=== PATIENT | male | born 1960 | race Caucasian/White ===

== ENCOUNTER 2017-09-18 09:19 | Outpatient (CLI) | payer OTHER ==
[2017-09-18 09:54] LABS: BASOPHILS % (AUTO) 0.8 %; EOSINOPHILS # (AUTO) 0.2 10^3/uL (0.0-0.7); EOSINOPHILS % (AUTO) 3.7 %; HGB - HEMOGLOBIN 14.5 g/dL (14.0-18.0); LYMPHOCYTES # (AUTO) 1.5 10^3/uL (1.5-3.5); LYMPHOCYTES % (AUTO) 24.9 %; MEAN CORPUSCULAR HEMOGLOBIN 29.1 pg (27.0-31.0); MEAN CORPUSCULAR HGB CONC 34.1 g/dL (32.0-36.0); MEAN CORPUSCULAR VOLUME 85.4 fL (80.0-94.0); MEAN PLATELET VOLUME 8.1 fL (7.4-11.4); MONOCYTES # (AUTO) 0.3 10^3/uL (0.0-1.0); MONOCYTES % (AUTO) 5.7 %; NEUTROPHILS # (AUTO) 3.9 10^3/uL (1.5-6.6); NEUTROPHILS % (AUTO) 64.9 %; PLT - PLATELET COUNT 203 10^3/uL (130-450); RED BLOOD COUNT 4.99 10^6/uL (4.70-6.10); RED CELL DISTRIBUTION WIDTH 13.4 % (12.0-15.0)
[2017-09-18 10:10] LABS: ALBUMIN 4.3 g/dL (3.2-5.5); ALBUMIN/GLOBULIN RATIO 1.3 (1.0-2.2); ALKALINE PHOSPHATASE 54 IU/L (42-121); ALT ALANINE AMINOTRANSFERASE 28 IU/L (10-60); AST ASPARTATE AMINOTRANSFERASE 28 IU/L (10-42); BILIRUBIN,TOTAL 0.8 mg/dL (0.2-1.0); BUN - BLOOD UREA NITROGEN 16 mg/dL (6-20); CALCIUM 9.4 mg/dL (8.5-10.3); CARBON DIOXIDE - CO2 25 mmol/L (21-32); CHLORIDE 106 mmol/L (101-111); CHOL/HDL RATIO 4.7 (<5.0); CHOLESTEROL 255 mg/dL; GFR - MDRD 78 (>89); GLUCOSE 99 mg/dL (70-100); HDL CHOLESTEROL 54 mg/dL; LDL CHOLESTEROL,CALCULATED 179 mg/dL; LDL/HDL RATIO 3.3 (<3.6); SODIUM 139 mmol/L (135-145); TOTAL PROTEIN 7.5 g/dL (6.7-8.2); VLDL CHOLESTEROL 22 mg/dL
[2017-09-18 10:25] LABS: HB2 TOTAL 16.1 g/dL; HEMOGLOBIN A1C 0.6 g/dL; HEMOGLOBIN A1C % 5.6 % (4.6-6.2)
[2017-09-18 10:43] LABS: THYROID STIMULATING HORMONE 2.17 uIU/mL (0.34-5.60)
[2017-09-21 11:58] LABS: HEPATITIS C ANTIBODY NON-REACTIVE (NON-REACTIVE)
== END 2017-09-18 09:20 | disposition home or self-care (01) ==
LOC: LAB 09:19
PROVIDERS: ATTEND Internal Medicine
DX: R42 Dizziness and giddiness (principal); Z13.6 Encounter for screening for cardiovascular disorders; Z12.5 Encounter for screening for malignant neoplasm of prostate; R20.0 Anesthesia of skin; Z11.59 Encounter for screening for other viral diseases; H93.19 Tinnitus, unspecified ear; R13.10 Dysphagia, unspecified
CPT/HCPCS: 36415; 80053; 80061; 82607; 83036; 83721; 84153; 84443; 85025; 86803

== ENCOUNTER 2018-06-22 10:10 | Outpatient (CLI) | payer BC ==
--- NOTE | 2018-06-22 14:47 | Nuclear Medicine Report ---
REVISED: THIS REPORT WAS ORIGINALLY SIGNED ON 06/22/2018 @ 1448. THE EXAM CODE REVISED ON 07/12/2018. Reason: 185 LB - LETICIA - CHEST PAIN Procedure Date: 06/22/2018 Accession Number: [id number] / [id number] Procedure: NM - Myocardial Perfusion Single CPT Code: FULL RESULT: EXAM: SINGLE-ISOTOPE EXERCISE STRESS TEST. SINGLE-ISOTOPE AND ONE-DAY REST/STRESS MYOCARDIAL PERFUSION SCANS WITH TOMOGRAPHIC IMAGING, QUANTITATIVE ANALYSIS, WALL MOTION ANALYSIS AND CALCULATION OF EJECTION FRACTION. EXAM DATE: 06/22/2018 02:09 PM. CLINICAL HISTORY: 185 LB - LETICIA - CHEST PAIN. COMPARISON: None. TECHNIQUE: A rest myocardial perfusion scan was done with tomography after the intravenous administration of 10.1 mCi Tc-99m sestamibi. After an appropriate delay, a treadmill exercise stress was performed according to department protocol. The patient exercised for 10 minutes and 0 seconds. The maximum heart rate was 167 bpm, which was more than 85% of the maximum predicted heart rate of 164 bpm. At approximately peak heart rate, 43.1 mCi of Tc-99m sestamibi was injected for stress myocardial perfusion scan. Motion correction was applied when appropriate. Gated tomographic images were obtained for wall motion analysis and computation of left ventricular ejection fraction. FINDINGS: Perfusion images: Left ventricular chamber size appears normal at rest and unchanged at stress. No convincing fixed perfusion deficits. No convincing reversible perfusion deficits. SSS 1, SRS 0, SDS 1. Gated images: No convincing focal wall motion abnormality. Calculated left ventricular EDV 72 mL, ESV 24 mL. The left ventricular ejection fraction is estimated at 66% (normal > 50%). IMPRESSION: 1. No convincing reversible perfusion deficits to indicate stress-induced ischemia. 2. No convincing fixed perfusion deficits. 3. Left ventricular ejection fraction of 66% (normal > 50%). RADIA MTDD
--- NOTE | 2018-06-22 16:30 | CARDIAC PROCEDURE NOTE ---
DATE OF SERVICE: 06/22/2018 Physician: Maggie Carlisle MD PROCEDURE: Exercise Cardiolite. PROTOCOL: Tahir. EXERCISE TIME: 10 minutes. METS: 11.81 HEART RATE RESPONSE: Baseline 54, to maximum 167, which was 101% of the maximum predicted heart rate . BLOOD PRESSURE RESPONSE: Baseline 122/86 to maximum 150/90. REASON FOR STOPPING TEST: The patient had exceeded his target heart rate. He says he could have kep t going on the test. SYMPTOMS: None, except a mild dizziness or lightheadedness. No vertigo. No chest pain. No dyspnea . ST SEGMENT RESPONSE: No significant ST elevations or depressions. ARRHYTHMIAS: Occasional PVCs occurred, and rarer PACs. IMPRESSION: No symptoms. No significant EKG changes. CONCLUSIONS: Await Cardiolite portion of test. TD: 06/22/2018 13:01
== END 2018-06-22 10:11 | disposition home or self-care (01) ==
LOC: DI 10:10
PROVIDERS: ATTEND Internal Medicine
DX: R07.9 Chest pain, unspecified (principal)
CPT/HCPCS: 78452; 93017; A9500; 78453

== ENCOUNTER 2018-09-23 09:18 | Day surgery (SDC) | payer BC ==
[2018-09-23] MEDS ORDERED: LACTATED RINGERS 1,000 ML IV ONE (09:31)
[2018-09-23] MEDS ORDERED: fentaNYL 100 MCG/2 ML VIAL IVP ONE (10:34)
[2018-09-23] MEDS ORDERED: fentaNYL 250 MCG/5 ML VIAL IVP ONE (10:34)
[2018-09-23] MEDS ORDERED: MIDAZOLAM 2 MG/2 ML VIAL IVP ONE (10:34)
[2018-09-23] MEDS ORDERED: LIDO GARGLE 30 ML BOTTLE PO ONE (10:46)
[2018-09-23 12:29] VITALS: BP 102/65
== END 2018-09-23 09:19 | disposition home or self-care (01) ==
LOC: SDS 09:18
PROVIDERS: ATTEND Internal Medicine Gastroenterology
PROC: 0DBP8ZZ Excision of Rectum, Via Natural or Artificial Opening Endoscopic (ICD-10-PCS; 2018-09-23)
PROC: 0DB28ZX Excision of Middle Esophagus, Via Natural or Artificial Opening Endoscopic, Diagnostic (ICD-10-PCS; 2018-09-23)
PROC: 0DB18ZX Excision of Upper Esophagus, Via Natural or Artificial Opening Endoscopic, Diagnostic (ICD-10-PCS; 2018-09-23)
PROC: 0DBM8ZZ Excision of Descending Colon, Via Natural or Artificial Opening Endoscopic (ICD-10-PCS; principal; 2018-09-23 10:45)
PROC: 0DBN8ZZ Excision of Sigmoid Colon, Via Natural or Artificial Opening Endoscopic (ICD-10-PCS; 2018-09-23 10:45)
DX: Z12.11 Encounter for screening for malignant neoplasm of colon (principal); D12.4 Benign neoplasm of descending colon; D12.5 Benign neoplasm of sigmoid colon; K62.1 Rectal polyp; K57.30 Diverticulosis of large intestine without perforation or abscess without bleeding; K22.2 Esophageal obstruction; K21.9 Gastro-esophageal reflux disease without esophagitis; R13.10 Dysphagia, unspecified; K44.9 Diaphragmatic hernia without obstruction or gangrene; K22.9 Disease of esophagus, unspecified
CPT/HCPCS: 43239; 45380; 45385; A9270; J3010; J7120

== ENCOUNTER 2019-10-20 13:41 | Outpatient (CLI) | payer OTHER ==
--- NOTE | 2019-10-20 14:35 | XRAY Report ---
Reason: RT KNEE PAIN Procedure Date: 10/20/2019 Accession Number: [id number] / [id number] Procedure: XR - Knee 4 View RT CPT Code: Final Report FULL RESULT: PROCEDURE: Knee 4 View RT INDICATIONS: RT KNEE PAIN TECHNIQUE: 4 views of the right knee(s) were acquired. COMPARISON: None. FINDINGS: Bones: No fractures or dislocations. Very mild medial femoral tibial compartment joint space narrowing and subchondral sclerosis is seen. No suspicious bony lesions. Soft tissues: No joint effusion. No suspicious soft tissue calcifications. IMPRESSION: . Mild medial femoral tibial compartment osteoarthritis. Reviewed by: Frank Galindo MD on 10/20/2019 2:34 PM PDT Approved by: Frank Galindo MD on 10/20/2019 2:34 PM PDT Station ID: [id number]
== END 2019-10-20 13:42 | disposition home or self-care (01) ==
LOC: DI 13:41
PROVIDERS: ATTEND Orthopaedic Surgery
DX: M17.11 Unilateral primary osteoarthritis, right knee (principal)

== ENCOUNTER 2020-06-05 10:22 | Outpatient (CLI) | payer BC ==
--- NOTE | 2020-06-05 11:33 | MRI Report ---
PROCEDURE: Lumbar Spine W/O INDICATIONS: LOW BACK PAIN, NUMBNESS LEG/FEET TECHNIQUE: Noncontrast sagittal T1 spin echo and T2 fast echo, sagittal STIR, axial T1 and T2 fast spin echo thr ough the lumbar spine. In cases with scoliosis, additional coronal T2 fast spin echo may be performe d. COMPARISON: Lumbar spine MRI dated 04/05/2014 FINDINGS: Image quality: Excellent. Alignment and Curvature: No plain films are available for comparison. Thus, for numbering purposes, 5 lumbar type vertebral bodies will be presumed for the current report. This should be confirmed with plain film correlation prior to any lumbar spinal intervention. There is loss of normal lumbar lordo sis. Bone Marrow: Marrow is of normal overall signal. No acute vertebral body compression fractures. Mi nimal reactive signal within the end plate adjacent to the L5-S1 and L3-L4 intervertebral discs. Spinal Cord: Conus medullaris terminates at the lower L1 level. Visualized cord demonstrates normal signal and size. Paraspinous Soft Tissues: No paravertebral masses. T12-L1: Mild disc desiccation. No significant canal, nor foraminal stenosis. No change. L1-L2: Mild disc desiccation. Mild facet and ligament flavum hypertrophy. No significant canal, no r foraminal stenosis. No change. L2-L3: Mild disc desiccation and diffuse disc bulge. Mild facet and ligament flavum hypertrophy. M ild epidural lipomatosis. Mild canal stenosis. Mild bilateral foraminal stenosis. No change. L3-L4: Mild disc desiccation and diffuse disc bulge. Mild facet and ligament flavum hypertrophy. Mi ld epidural lipomatosis. Mild canal stenosis. Mild bilateral foraminal stenosis. No change. L4-L5: Mild disc desiccation and diffuse disc bulge. Mild facet and ligamentum flavum hypertrophy. Mild canal stenosis. Mild bilateral foraminal stenosis. No change. L5-S1: Mild disc height loss and desiccation. Mild diffuse disc bulge with small superimposed right paracentral protrusion. Mild bilateral facet hypertrophy. Mild canal stenosis. Mild bilateral forami nal stenosis. No change. IMPRESSION: 1. Multilevel degenerative disc and facet disease, in addition to epidural lipomatosis and ligamentum flavum hypertrophy. 2. Mild multilevel canal and foraminal stenoses. No neural impingement. Reviewed by: Nancy Sawyer MD on 06/05/2020 11:32 AM PST Approved by: Nancy Sawyer MD on 06/05/2020 11:32 AM [facility] Station ID: [id number]
== END 2020-06-05 10:23 | disposition home or self-care (01) ==
LOC: DI 10:22
PROVIDERS: ATTEND Internal Medicine
DX: E88.2 Lipomatosis, not elsewhere classified (principal); M47.816 Spondylosis without myelopathy or radiculopathy, lumbar region; M51.36 Other intervertebral disc degeneration, lumbar region; M48.061 Spinal stenosis, lumbar region without neurogenic claudication; M51.27 Other intervertebral disc displacement, lumbosacral region

== ENCOUNTER 2020-08-27 12:27 | Emergency (ER) | payer OTHER ==
[2020-08-27 12:50] VITALS: BP 135/83
--- NOTE | 2020-08-27 12:58 | ED Physician Documentation ---
History of Present Illness - Stated complaint Stated Complaint: HEADACHE/NECK PX - Chief complaint Chief Complaint: General - History obtained from History obtained from: Patient - Additonal information Additional information: Had first Pfizer Covid shot about 2-1/2 weeks ago. About 3 days later developed headache and neck pain. The symptoms are persistent. The pain is much worse with rotation than it is flexion or extension. The headache is persistent but improved with Tylenol, aspirin, or Aleve. He denies any fevers. Review of Systems Constitutional: reports: Myalgias. denies: Fever, Chills Musculoskeletal: reports: Neck pain. denies: Back pain Neurologic: reports: Numbness (He has chronic numbness of his feet and is seeing a neurologist soon for this for EMG.) PD PAST MEDICAL HISTORY - Past Medical History Past Medical History: No Cardiovascular: None Respiratory: None Endocrine/Autoimmune: None GI: None : None HEENT: None Psych: None Musculoskeletal: Other Derm: None - Past Surgical History Past Surgical History: Yes General: Colonoscopy - Present Medications Home Medications: Ambulatory Orders Medication Instructions Recorded Confirmed No Known Home Medications 09/23/18 09/23/18 - Allergies Allergies/Adverse Reactions: Allergies Allergy/AdvReac Type Severity Reaction Status Date / Time Penicillins Allergy Hives Verified 08/27/20 12:36 prochlorperazine Allergy Unknown Verified 08/27/20 12:36 [From Compazine] - Social History Does the pt smoke?: No Smoking Status: Never smoker Does the pt drink ETOH?: Yes Does the pt have substance abuse?: Yes Substance Use and Type: CBD oil / Products - Immunizations Immunizations are current?: Yes - POLST Patient has POLST: No PD ED PE NORMAL - Vitals Vital signs reviewed: Yes - General General: Alert and oriented X 3, No acute distress - HEENT HEENT: PERRL, EOMI - Neck Neck: Supple, no meningeal sign, No bony TTP - Neuro Neuro: Alert and oriented X 3, No motor deficit, No sensory deficit, Normal speech - Psych Psych: Normal mood, Normal affect Results - Vitals Vitals: Vital Signs - 24 hr 08/27/20 08/27/20 12:36 12:49 Temperature 36.5 C Heart Rate 60 85 Respiratory 16 16 Rate Blood Pressure 129/82 H 135/83 H O2 Saturation 99 99 Oxygen O2 Source Room air PD MEDICAL DECISION MAKING - ED course ED course: Given the time course, and specific clinical circumstances especially the fact that his pain is worse with rotation and going side to side rather than flexion and the lack of Kernig's or Brudzinski sign and lack of fever I told him that meningitis was exceedingly unlikely. That said I offered lumbar puncture which she declined. Departure - Departure Disposition: Home, Self Care Clinical Impression: Neck pain Condition: Good Record reviewed to determine appropriate education?: Yes Instructions: ED Neck Pain No Trauma Comments: As discussed, given the time course, increased pain with rotation rather than flexion extension, and lack of fevers I think meningitis is exceedingly unlikely. Return if you worsen or develop any of these above symptoms, especially fever, or more pain with going forward with your neck then rotating the neck.
== END 2020-08-27 13:04 | disposition home or self-care (01) ==
LOC: ED 12:27
DX: M54.2 Cervicalgia (principal)
CPT/HCPCS: 99281; 99282

== ENCOUNTER 2020-08-29 15:43 | Outpatient (CLI) | payer OTHER ==
--- NOTE | 2020-08-29 16:03 | CT Report ---
PROCEDURE: HEAD WO INDICATIONS: HEADACHE TECHNIQUE: Noncontrast 4.5 mm thick angled axial sections acquired from the foramen magnum to the vertex. For r adiation dose reduction, the following was used: automated exposure control, adjustment of mA and/or kV according to patient size. COMPARISON: None. FINDINGS: Image quality: Excellent. CSF spaces: Basal cisterns are patent. No extra-axial fluid collections. Ventricles are normal in size and shape. Brain: No midline shift. No intracranial masses or hemorrhage. Garcia-white matter interface is norm al. Skull and face: Calvarium and visualized facial bones are intact, without suspicious lesions. Sinuses: Visualized sinuses and mastoids are clear. IMPRESSION: No acute intracranial process. Reviewed by: Gibran Harris MD on 08/29/2020 4:02 PM PDT Approved by: Gibran Harris MD on 08/29/2020 4:02 PM PDT Station ID: [id number]
== END 2020-08-29 15:44 | disposition home or self-care (01) ==
LOC: DI 15:43
PROVIDERS: ATTEND Physician Assistant
DX: R51.9 Headache, unspecified (principal)

== ENCOUNTER 2021-07-09 16:28 | Outpatient (CLI) | payer OTHER ==
--- NOTE | 2021-07-09 20:10 | XRAY Report ---
PROCEDURE: Hip w/Pelvis 1V RT INDICATIONS: PAIN IN RIGHT HIP JOINT TECHNIQUE: AP pelvis with lateral view(s) of the right hip(s). COMPARISON: None. FINDINGS: Bones: No fractures or dislocations. Pelvic ring appears intact. No suspicious bony lesions. Mild bilateral hip degenerative change. Soft tissues: The visualized bowel gas pattern is normal. No suspicious soft tissue calcifications. IMPRESSION: Mild bilateral hip degenerative change. No evidence acute bony abnormality of the pelvis and right hip. If clinical suspicion and/or symptoms persist, further assessment with repeat plain films or advanced imaging (e.g., CT, MRI, or bone scan) may be helpful for further assessment. Reviewed by: Freddy Alcantara MD on 07/09/2021 8:09 PM PST Approved by: Freddy Alcantara MD on 07/09/2021 8:09 PM PST Station ID: [id number]
== END 2021-07-09 16:29 | disposition home or self-care (01) ==
LOC: DI 16:28
PROVIDERS: ATTEND Internal Medicine
DX: M16.0 Bilateral primary osteoarthritis of hip (principal)

== ENCOUNTER 2022-07-22 10:37 | Outpatient (CLI) | payer OTHER ==
--- NOTE | 2022-07-22 16:53 | XRAY Report ---
PROCEDURE: Wrist 3 View RT INDICATIONS: WRIST PAIN TECHNIQUE: 3 views of the wrist were acquired. COMPARISON: None FINDINGS: Bones: No fractures or dislocations. No suspicious bony lesions. Scaphoid view: Not requested Soft tissues: No suspicious soft tissue calcifications. IMPRESSION: No acute fracture. No osseous lesion. If symptoms and/or clinical suspicion for pathology continue, f urther assessment with repeat plain films, or advanced imaging (e.g., CT, MRI, or bone scan) is recom mended for further assessment. Reviewed by: Nancy Sawyer MD on 07/22/2022 4:52 PM PDT Approved by: Nancy Sawyer MD on 07/22/2022 4:52 PM PDT Station ID: [id number]
== END 2022-07-22 10:38 | disposition home or self-care (01) ==
LOC: DI 10:37
PROVIDERS: ATTEND Internal Medicine
DX: M25.531 Pain in right wrist (principal)

== ENCOUNTER 2022-07-24 12:10 | Outpatient (CLI) | payer OTHER ==
--- NOTE | 2022-07-24 13:07 | XRAY Report ---
PROCEDURE: Thoracic Spine 2 View INDICATIONS: THORACIC BACK PAIN TECHNIQUE: 2 views of the thoracic spine were acquired. COMPARISON: None. FINDINGS: Bones: No fractures or dislocations. No suspicious bony lesions. 12 pairs of ribs are noted, and a ppear intact where visualized. Minimal mild scattered areas of degenerative disc space narrowing. Soft tissues: No paravertebral stripe thickening. IMPRESSION: Early degenerative changes. No visualized acute fracture or dislocation. However, occult injury canno t be excluded. Recommend short interval imaging follow-up in 7-10 days as clinically indicated for ad ditional evaluation. Reviewed by: Heike Hall MD on 07/24/2022 1:05 PM PDT Approved by: Heike Hall MD on 07/24/2022 1:05 PM PDT Station ID: [id number]
== END 2022-07-24 12:11 | disposition home or self-care (01) ==
LOC: DI 12:10
PROVIDERS: ATTEND Internal Medicine
DX: M47.814 Spondylosis without myelopathy or radiculopathy, thoracic region (principal)

== ENCOUNTER 2022-10-24 09:47 | Day surgery (SDC) | payer OTHER ==
[2022-10-24] MEDS ORDERED: LACTATED RINGERS 1,000 ML IV ONE ×2 (09:50→13:30)
--- NOTE | 2022-10-24 11:58 | ANESTHESIA ---
Pre-Anesthesia VS, & Labs - Diagnosis Jiménez's, hx of polyps - Procedure EGD, Colonoscopy Vital Signs: Temp Pulse Resp BP Pulse Ox O2 Flow Rate 36.0 C L 61 16 126/90 H 100 10/24/22 09:58 10/24/22 09:58 10/24/22 09:58 10/24/22 09:58 10/24/22 09:58 Height: 5 ft 10 in Weight (kg): 87.8 kg Body Mass Index: 27.8 BMI Classification: Overweight - NPO Other (0940) Home Medications and Allergies No Known Home Medications 09/23/18 Allergies/Adverse Reactions: Allergies Allergy/AdvReac Type Severity Reaction Status Date / Time Penicillins Allergy Hives Verified 10/24/22 10:12 prochlorperazine Allergy Unknown Verified 10/24/22 10:12 [From Compazine] Anes History & Medical History - Anesthetic History Anesthesia Complications: reports: No previous complications Family history of Anesthesia Complications: Denies Family history of Malignant Hyperthermia: Denies - Medical History Cardiovascular: reports: None Pulmonary: reports: None Gastrointestinal: reports: Colon polyps Urinary: reports: None Musculoskeletal: reports: None Endocrine/Autoimmune: reports: None Skin: reports: None Smoking Status: Never smoker - Surgical History General: reports: Colonoscopy Exam General: Alert, Oriented x3, Cooperative Dental: WNL Mouth Openin Fingerbreadth Neck Mobility: Normal Mallampati classification: II Thyromental Distance: 4-6 cm Respiratory: Lungs clear Cardiovascular: Regular rate Plan Anesthesia Type: General, Total IV Consent for Procedure(s) Verified and Reviewed: Yes Code Status: Attempt Resuscitation ASA classification: 2-Mild systemic disease Is this case an emergency?: No
[2022-10-24] MEDS ORDERED: MIDAZOLAM 2 MG/2 ML VIAL ONE (12:07)
[2022-10-24] MEDS ORDERED: PROPOFOL 200 MG/20 ML VIAL IVP ONE ×3 (12:07→12:44)
[2022-10-24] MEDS ORDERED: LIDOCAINE-PF 2% 10 ML AMP SUBQ ONE (12:27)
[2022-10-24] MEDS ORDERED: ePHEDrine 50 MG/ML VIAL IVP ONE (13:00)
--- NOTE | 2022-10-24 14:05 | ANESTHESIA POST OP EVALUATION ---
Anesthesia Post Eval - Post Anesthesia Eval Vitals: Last Vital Signs Temp 36.2 C L 10/24/22 13:47 Pulse 71 10/24/22 13:47 Resp 16 10/24/22 13:47 BP 95/69 10/24/22 13:47 Pulse Ox 95 10/24/22 13:47 O2 Flow Rate CV Function Including HR & BP: Stable Pain Control: Satisfactory Nausea & Vomiting: Negative Mental Status: Baseline Respiratory Status: Airway Patent Hydration Status: Satisfactory Anesthesia Complications: None
[2022-10-24 14:42] VITALS: BP 103/77
== END 2022-10-24 09:48 | disposition home or self-care (01) ==
LOC: SDS 09:47
PROVIDERS: ATTEND Surgery
PROC: 0DBL8ZZ Excision of Transverse Colon, Via Natural or Artificial Opening Endoscopic (ICD-10-PCS; 2022-10-24)
PROC: 0DB38ZX Excision of Lower Esophagus, Via Natural or Artificial Opening Endoscopic, Diagnostic (ICD-10-PCS; principal; 2022-10-24 10:45)
PROC: 0DBK8ZZ Excision of Ascending Colon, Via Natural or Artificial Opening Endoscopic (ICD-10-PCS; 2022-10-24 10:45)
DX: Z12.11 Encounter for screening for malignant neoplasm of colon (principal); K22.70 Barrett's esophagus without dysplasia; D12.2 Benign neoplasm of ascending colon; D12.3 Benign neoplasm of transverse colon; K57.30 Diverticulosis of large intestine without perforation or abscess without bleeding
CPT/HCPCS: 43239; 45380; 45385; J7120

== ENCOUNTER 2023-04-07 09:01 | Outpatient (CLI) | payer OTHER ==
--- NOTE | 2023-04-07 16:30 | MRI Report ---
PROCEDURE: LUMBAR SPINE WO INDICATIONS: MUSCLE ATROPHY, MYALGIA TECHNIQUE: Noncontrast sagittal T1 spin echo and T2 fast echo, sagittal STIR, axial T1 and T2 fast spin echo thr ough the lumbar spine. In cases with scoliosis, additional coronal T2 fast spin echo may be performe d. COMPARISON: 06/05/2020 FINDINGS: Image quality: Excellent. Alignment and Curvature: There is normal bony alignment. Bone Marrow: Marrow is of normal overall signal. No acute vertebral body compression fractures. Spinal Cord: Conus medullaris terminates at the top of L1 level. Visualized cord demonstrates althea l signal and size. Paraspinous Soft Tissues: No paravertebral masses. T12-L1: Normal in appearance. L1-L2: Normal in appearance. L2-L3: No significant change. Mild disc bulge. Facet and ligament hypertrophy. No significant shaggy l stenosis or foraminal stenosis. L3-L4: No significant change. Mild disc bulge. Facet hypertrophy. No significant canal stenosis. Mi ld bilateral foraminal stenosis. L4-L5: No significant change. Mild disc bulge. Facet hypertrophy. Mild disc bulge. Mild facet hyper trophy. No central canal stenosis. Development of left foraminal annulus tear plus mild left foramina l disc bulge flattening the inferior aspect of the exiting left L4 nerve root far laterally. Referenc e sagittal T2 image 14 of series 5 as well as axial image 35 of series 8. Right foramen is patent. L5-S1: Slight interval increase in a small right paracentral disc protrusion with increased signal suggesting that this may be relatively acute. There is no associated canal stenosis. Reference image 9 of T2 sagittal sequence 5 and image 41 of T2 axial series 8. There is bilateral facet hypertrophy. No foraminal stenosis. IMPRESSION: 1. Multilevel underlying facet arthropathy, relatively mild. 2. No significant canal stenosis. 3. Development of a left foraminal annulus tear plus disc bulge at L4-L5 which mildly flattens the in ferior aspect of the exiting left L4 nerve root far laterally. Recommend correlation for presence or absence of left L4 radicular symptoms. 4. Increase in a small right paracentral disc protrusion at L5-S1, potentially relatively acute. Ther e is no associated canal stenosis. Reviewed by: Freddy Alcantara MD on 04/07/2023 4:28 PM PST Approved by: Freddy Alcantara MD on 04/07/2023 4:28 PM PST Station ID: [id number]
--- NOTE | 2023-04-07 16:58 | MRI Report ---
PROCEDURE: CERVICAL SPINE WO INDICATIONS: MUSCLE ATROPHY, MYALGIA TECHNIQUE: Noncontrast sagittal T1 spin echo and T2 fast spin echo, sagittal STIR, foraminal oblique sagittal T2 fast spin echo, and axial gradient echo or T2 fast spin echo through the cervical spine. COMPARISON: None. FINDINGS: Image quality: Excellent. Alignment and Curvature: There is trace retrolisthesis of C4 on C5, C5 on C6 and trace anterolisthes is of C6 on C7. Bone Marrow: Marrow demonstrates normal overall signal. Spinal Cord: Visualized spinal cord has normal size and signal. No cerebellar tonsillar herniation. Paraspinous Soft Tissues: No paravertebral masses. Prevertebral soft tissues are normal in thicknes s. Discs: Scattered mild to moderate disc desiccation most prominent at C5-6 and C6-7. C2-C3: No disc bulge, spinal stenosis or foraminal narrowing. C3-C4: Mild disc bulge with effacement of the anterior thecal sac. No foraminal narrowing. C4-C5: Mild disc bulge with effacement of the anterior thecal sac. No foraminal narrowing. C5-C6: Mild disc bulge with mild to moderate spinal stenosis. Mild to moderate bilateral foraminal n arrowing with uncovertebral hypertrophy. C6-C7: Mild disc bulge with mild spinal stenosis. Moderate bilateral foraminal narrowing with uncove rtebral hypertrophy. C7-T1: No disc bulge, spinal stenosis or foraminal narrowing. IMPRESSION: Degenerative changes most severe at C5-6 and C6-7 demonstrating spinal stenosis as well as bilateral foraminal narrowing. Reviewed by: Heike Hall MD on 04/07/2023 4:57 PM PST Approved by: Heike Hall MD on 04/07/2023 4:57 PM PST Station ID: [id number]
== END 2023-04-07 09:02 | disposition home or self-care (01) ==
LOC: DI 09:01
PROVIDERS: ATTEND Internal Medicine
DX: M47.812 Spondylosis without myelopathy or radiculopathy, cervical region (principal); M48.02 Spinal stenosis, cervical region; M79.10 Myalgia, unspecified site; M47.816 Spondylosis without myelopathy or radiculopathy, lumbar region; M51.36 Other intervertebral disc degeneration, lumbar region; M51.27 Other intervertebral disc displacement, lumbosacral region